=== PATIENT | female | born 1960 | race Caucasian/White ===

== ENCOUNTER 2020-03-17 08:02 | Emergency (ER) | payer BC, SELFPAY ==
[2020-03-17 08:23] VITALS: BP 158/88; PULSE 71; RESP 16; TEMP 36.3; O2SAT 99
--- NOTE | 2020-03-17 08:23 | ED.URI ---
HPI - URI/Sore Throat General Chief Complaint: Upper Respiratory Infection Stated Complaint: Sore throat Time Seen by Provider: 03/17/20 08:23 Source: patient Mode of arrival: ambulatory Limitations: no limitations History of Present Illness HPI Narrative: Arlet Woodson is a 60 yo female with a PMH of hypothyroid who comes to express care with a sore throat x 2-3 days, no fever, tested for covid 2 weeks ago and was negative. Related Data Home Medications Medication Instructions Recorded Confirmed levothyroxine 112 mcg DAILY 03/17/20 03/17/20 Allergies Allergy/AdvReac Type Severity Reaction Status Date / Time Penicillins Allergy Unknown Rash Verified 03/22/19 09:21 OIL BASED PRODUCTS Allergy Severe INHALED- Uncoded 03/18/19 12:20 SOB/COUGHING Review of Systems Review of Systems: Narrative: CONSTITUTIONAL: Denies fever, chills, sweats. EYES: Denies visual changes, redness, discharge. ENT: Denies rhinorrhea, some congestion, has sore throat, mild right otalgia. CARDIOVASCULAR: Denies chest pain, palpitations, edema. RESPIRATORY: Denies dyspnea, wheezing, cough at night GASTROINTESTINAL: Denies abdominal pain, nausea, vomiting, diarrhea. GENITOURINARY: Denies dysuria, hematuria, abnormal discharge SKIN: Denies rash or itching. NEUROLOGIC: Denies numbness, or focal weakness. PSYCHIATRIC: Denies anxiety or depression. PMFSH Past Medical History Medical History Hypothyroidism Family History Family History Other Hypertension Kidney disease Social History Social History (Updated 03/17/20 @ 08:33 by Emma Lamb CNP) Smoking status: Never smoker Alcohol intake: current Gender identity (if verbalized by the patient): Female Comments At time of signature, I agree with nursing past medical, surgical, social and family history. There is no relevant family history pertinent to the presenting complaint. Patient's blood pressure elevated today and referred to primary care Exam Narrative: Exam Narrative: GENERAL: This is a well-nourished, well-developed patient, in mild distress. HEAD: normocephalic, atraumatic. EYES: PERRL. Sclera clear/white. Vision is grossly intact. EARS: External ears normal, auditory canals clear and without drainage, TMs normal without perforation. Hearing grossly intact. NOSE: External nose normal without nasal discharge, nares with redness, no rhinorrhea. THROAT: Mucous membranes moist, posterior pharynx erythema NECK: Neck supple, non-tender CARDIOVASCULAR: Regular rate and rhythm without murmurs, gallops, or rubs. RESPIRATORY: Clear to auscultation. Breath sounds equal bilaterally. No wheezes, rales, or rhonchi. GASTROINTESTINAL: Abdomen soft, non-tender, SKIN: warm, intact with no suspicious lesions or rash, good texture and turgor. NEURO: awake, alert, and oriented to person, place and time. There were no obvious focal neurologic abnormalities. Steady gait EXTREMITIES: Normal range of motion. BACK: Nontender without deformity Course Course Emergency Course: Strep test is negative, sent for culture Started on cepacol lozenges, Claritin, short course of steroids Vital Signs Vital signs: Vital Signs Temperature 97.4 F L 03/17/20 08:23 Pulse Rate 71 03/17/20 08:23 Respiratory Rate 16 03/17/20 08:23 Blood Pressure 158/88 H 03/17/20 08:23 Pulse Oximetry 99 03/17/20 08:23 Temperature 97.4 F L 03/17/20 08:23 Pulse Rate 71 03/17/20 08:23 Respiratory Rate 16 03/17/20 08:23 Blood Pressure 158/88 H 03/17/20 08:23 Pulse Oximetry 99 03/17/20 08:23 MDM - URI/Sore Throat Differential Diagnosis Differential diagnosis: Likely upper respiratory infection, bronchitis, pharyngitis and other Lab Data Labs: Strep Screen Presumptive Negative *(Reference Range: Negative)* Discharge Plan Discharge
== END 2020-03-17 08:41 | disposition home or self-care (01) ==
PROVIDERS: Emergency Provider Nurse Practitioner
DX: J02.9 Acute pharyngitis, unspecified (principal); E03.9 Hypothyroidism, unspecified
CPT/HCPCS: 87081; 87880; 99213; G0463

== ENCOUNTER 2022-10-15 11:48 | Outpatient (CLI) | payer BC, SELFPAY ==
[2022-10-15 19:06] LABS: Hemoglobin A1C 6.1 % (<5.7)
[2022-10-15 19:12] LABS: Basophils Absolute Auto 0.1 K/mm3 (0.0-0.1); Basophils Percent Auto 1.1 % (0.2-1.2); Eosinophils Absolute Auto 0.2 K/mm3 (0-0.3); Eosinophils Percent Auto 2.3 % (0-4.4); Hematocrit 43.1 % (37.0-47.0); Hemoglobin 14.1 g/dL (12.0-15.0); Immature Granulocyte Absolute 0.02 K/mm3 (0.00-0.031); Immature Granulocyte Percent A 0.3 % (0-0.5); Lymphocytes Absolute Auto 2.12 K/mm3 (0.9-3.2); Lymphocytes Percent Auto 32.5 % (18.3-44.2); Mean Corpuscular HGB Conc 32.7 g/dl (32-36); Mean Corpuscular Hemoglobin 30.9 pg (26-34); Mean Corpuscular Volume 94.3 fl (80-100); Monocytes Absolute Auto 0.7 K/mm3 (0.1-0.6); Monocytes Percent Auto 10.3 % (2.6-8.5); Neutrophils Absolute Auto 3.5 K/mm3 (1.3-6.7); Neutrophils Percent Auto 53.5 % (45.5-73.1); Platelet Count Result 205 k/mm3 (150-375); Red Blood Count 4.57 M/mm3 (4.2-5.4); Red Cell Distribution Width 12.3 % (11.5-14.5); White Blood Count 6.5 K/mm3 (4.5-10.0)
[2022-10-15 19:15] LABS: Alanine Aminotransferase 43 U/L (6-35); Albumin Level 4.3 g/dL (3.5-5.1); Alkaline Phosphatase 86 U/L (38-126); Anion Gap 7 mmol/L (8-16); Aspartate Amino Transferase 34 U/L (14-36); Bilirubin,Total 0.8 mg/dL (0.2-1.3); Blood Urea Nitrogen 14 mg/dL (7-17); Calcium 8.9 mg/dL (8.4-10.2); Carbon Dioxide 29 mmol/L (22-30); Chloride 103 mmol/L (98-107); Cholesterol 172 mg/dL (0-200); Estimated Glomerular Filt Rate > 60; Glucose 107 mg/dL (65-110); HDL Direct 46 mg/dL; Potassium 4.3 mmol/L (3.4-5.0); Sodium 139 mmol/L (137-145); Triglycerides 182 mg/dL (<150)
[2022-10-15 19:32] LABS: LDL Cholesterol Direct 92 mg/dL
[2022-10-15 19:50] LABS: Vitamin D 25 Hydroxy 37.3 ng/mL
== END 2022-10-15 11:49 | disposition home or self-care (01) ==
LOC: ANHGOSHLAB 11:49
PROVIDERS: PCP Family Medicine; Visit Provider Nurse Practitioner
DX: E78.5 Hyperlipidemia, unspecified (principal); E03.9 Hypothyroidism, unspecified; E55.9 Vitamin D deficiency, unspecified; R73.03 Prediabetes
CPT/HCPCS: 36415; 80053; 80061; 82306; 83036; 84443; 85025

== ENCOUNTER 2023-04-16 08:33 | Outpatient (CLI) | payer BC, SELFPAY ==
[2023-04-16 09:28] LABS: Kit Draw Collected
== END 2023-04-16 08:34 | disposition home or self-care (01) ==
LOC: ANHGOSHLAB 08:34
PROVIDERS: PCP Family Medicine; Visit Provider Nurse Practitioner Family
DX: E03.9 Hypothyroidism, unspecified (principal); E78.5 Hyperlipidemia, unspecified; H04.123 Dry eye syndrome of bilateral lacrimal glands; I10 Essential (primary) hypertension; M25.50 Pain in unspecified joint; Z13.1 Encounter for screening for diabetes mellitus; Z13.220 Encounter for screening for lipoid disorders; Z13.89 Encounter for screening for other disorder
CPT/HCPCS: 36415

== ENCOUNTER 2023-11-19 15:11 | Outpatient (CLI) | payer BC, SELFPAY ==
--- NOTE | ~2023-11-19 | XR_ITS ---
EXAMINATION: XR knee RT min 4V DATE: 11/19/2023 15:25 INDICATION: Injury of right lower leg, initial encounter. TECHNIQUE: 4 views of right knee including weightbearing views were obtained. COMPARISON: None. FINDINGS: Alignment is normal. No fracture. There is mild tricompartmental osteoarthritis. There is a small knee joint effusion. IMPRESSION: 1. Mild right knee osteoarthritis. 2. Small right knee joint effusion. Reviewed, dictated and finalized at location E.
== END 2023-11-19 15:12 | disposition home or self-care (01) ==
LOC: ANHIMG 15:13
PROVIDERS: PCP Family Medicine; Visit Provider Nurse Practitioner Family
DX: M25.361 Other instability, right knee (principal); M17.11 Unilateral primary osteoarthritis, right knee; M25.461 Effusion, right knee
CPT/HCPCS: 73564

== ENCOUNTER 2024-10-25 12:13 | Outpatient (CLI) | payer BC, SELFPAY ==
--- NOTE | ~2024-10-25 | MM_ITS ---
EXAMINATION: MM screening [facility] BI w gary HISTORY: Screening TECHNIQUE: Craniocaudal and mediolateral oblique 3-D tomosynthesis images were obtained and synthetic 2-D images were generated. CAD analysis was submitted and interpreted. COMPARISON: 04/29/2017 and dating back to 04/22/2011 BREAST PARENCHYMAL COMPOSITION: There are scattered areas of fibroglandular density. FINDINGS: Punctate and bulky calcifications are detected bilaterally, stable and benign in appearance . Punctate calcifications detected bilaterally, stable and benign in appearance, dermal in origin. Stable parenchymal pattern without suspicious microcalcifications, architectural distortion, discrete masses or significant asymmetry. IMPRESSION: 1. No mammographic evidence of malignancy. 2. Recommend routine screening mammography in one year. BI-RADS Category 2: Benign finding(s). Reviewed, dictated and finalized at location A.
--- OUTSIDE RECORDS SUMMARY | 2024-10-25 13:44 | XMS_ITS | Referral Summary ---
Author Organization [address] [address] Care Team Providers Care Transportation Museum Helper Name Role Phone Gino Goodson MD Primary Care Provider Encounters Date Type Department Care Team Description 08/22/2024 Results Follow-Up [facility] Convenient Care at [address] [phone] Tamara Steel NP 08/21/2024 2:54 PM DIE SINKER - 08/21/2024 11:59 PM DIE SINKER Hospital Encounter [address] [address] Pharyngitis, unspecified etiology Discharge Disposition: Discharge to home or self care 08/21/2024 11:15 AM DIE SINKER Office Visit [facility] Care at [address] [address] Tamara Steel NP Pharyngitis, unspecified etiology (Primary Dx) from Last 3 Months Allergies Active Allergy Reactions Criticality Noted Date Comments Penicillins Swelling Medium 04/22/2014 Medications atorvastatin (LIPITOR) 20 mg tablet TAKE 1 TABLET BY MOUTH EVERY DAY NEEDS APPOINTMENT IN AUGUST Active cyclobenzaprine (FLEXERIL) 10 mg tablet Take 0.5 tablets (5 mg total) by mouth 3 (three) times a day as needed 4 Active levothyroxine (SYNTHROID) 112 mcg tablet TAKE ONE TABLET (112MCG) BY MOUTH ONCE DAILY 4 Active Active Problems No known active problems Social History Tobacco Use Types Packs/Day Years Used Date Smoking Tobacco: Never Assessed Comments Unknown Sex and Gender Information Value Date Recorded Sex Assigned at Not on file Legal Sex Female 2:29 AM DIE SINKER Gender Identity Not on file Sexual Orientation Not on file Last Filed Vital Signs Vital Sign Reading Time Taken Comments Blood Pressure 161/90 08/21/2024 11:10 AM DIE SINKER Pulse 70 08/21/2024 11:10 AM DIE SINKER Temperature 37 C (98.6 F) 08/21/2024 11:10 AM DIE SINKER Respiratory Rate 20 08/21/2024 11:10 AM DIE SINKER Oxygen Saturation 98% 08/21/2024 11:10 AM DIE SINKER Inhaled Oxygen Concentration - - Weight 112.5 kg (248 lb) 08/21/2024 11:10 AM DIE SINKER Height - - Body Mass Index - - Plan of Treatment Not on file Procedures Procedure Name Priority Date/Time Associated Diagnosis Comments THROAT CULTURE Routine 08/21/2024 3:37 PM DIE SINKER Pharyngitis, unspecified etiology POC INFLUENZA A/B, COVID-19 ANTIGEN Routine 08/21/2024 11:36 AM DIE SINKER Pharyngitis, unspecified etiology POCT RAPID STREP Routine 08/21/2024 11:2 9 AM DIE SINKER Pharyngitis, unspecified etiology from Last 3 Months Results * Throat culture Throat (08/21/2024 3:37 PM DIE SINKER) Report Final Report: No growth of pathogens. Comment:Testing performed by : [facility], [address] [place]., [address] Throat 08/21/2024 3:37 PM DIE SINKER 08/21/2024 6:02 PM DIE SINKER Narrative TY ROBERTS - 08/22/2024 3:55 PM DIE SINKER Testing performed by [facility] Microbiology Laboratory ([phone]). us Tamara Steel NP LAB MICROBIOLOGY - GENERAL ORD ERABLES Final Result TY [address] Department [place] [address] * POC Influenza A/B, COVID-19 antigen (08/21/2024 11:36 AM DIE SINKER) Influenza A Ag, POC Negative Negative [facility] Influenza B Ag, POC Negative Negative [facility] COVID-19 Ag POC Presumptive Negative Presumptive Negative, Invalid [facility] Nasal 08/21/2024 11:3 6 AM DIE SINKER Tamara Steel PAPER FINISHER POINT OF CARE TEST ORDERABLES Final Result Performing Organization Address City/State/[facility] Co de Phone Number [facility] EDW [facility] [place] [address], [facility] * POCT rapid strep A (08/21/2024 11:29 AM DIE SINKER) Rapid Strep A, POC Negative Negative Swab 08/21/2024 11:2 9 AM DIE SINKER Tamara Steel PAPER FINISHER POINT OF CARE TEST ORDERABLES Final Result from Last 3 Months Insurance [employer] Care Teams Transportation Museum Helper Relationship Specialty Start Date End Date Gino Goodson MD [address] [place] [address] [place] [phone] PCP - General Family Practice 08/21/24
--- OUTSIDE RECORDS SUMMARY | 2024-10-25 13:44 | XMS_ITS | Clinical Summary ---
Author Organization [facility] [employer] Address [address] [place] [address] Care Team Providers Care Manager Testing Name Role Phone Provider, No Pcp Primary Care Provider Unavailab le Source Comments [facility] [employer],non-owned Affiliates and Associated Physician Practices is amultiple site organization consisting of ambulatory clinics and hospital sitesin [place], [place], [place] and [place]. This disclosure is being madepursuant to the Care Everywhere program and may not contain all information available regarding this patient. Last updated 18.[employer] Allergies Active Allergy Reactions Criticality Noted Date Comments Penicillins Swelling Low 04/22/2014 Medications * Be aware that medications may not be up to date on this document. Alwaysverify current medications with the patient. atorvastatin (Lipitor) 20 MG tablet Take 1 (one) tablet by mouth once daily 4 Active levothyroxine (Synthroid) 112 MCG tablet TAKE ONE TABLET (112MCG) BY MOUTH ONCE DAILY 4 Active meloxicam (Mobic) 15 MG tabletIndications: Lumbar radiculopathy Take 1 (one) tablet by mouth once daily 30 tablet 4 Active methylPREDNISolone (Medrol Dosepak) 4 MG tablet Take by mouth as directed Take as directed by mouth per package instructions. 21 tablet 4 Active methylPREDNISolone (Medrol Dosepak) 4 MG tablet Take by mouth as directed Take as directed by mouth per package instructions. 21 tablet 4 Active cyclobenzaprine (Flexeril) 10 MG tablet Take 0.5 (one-half) tablet by mouth 3 times daily as needed for Muscle Spasms 15 tablet 4 Active Active Problems Problem Noted Date Diagnosed Date Closed fracture of right acetabulum 04/22/2014 Social History Tobacco Use Types Packs/Day Years Used Date Smoking Tobacco: Never Smokeless Tobacco: Never Alcohol Use Standard Drinks/Week Comments Yes 0 (1 standard drink = 0.6 oz pur e alcohol) PHQ-2 Answer Date Recorded Patient Health Questionnaire-2 Score 0 04/26/2024 Comments Unknown Sex and Gender Information Value Date Recorded Sex Assigned at Not on file Legal Sex Female 6:09 PM MOLD MAKER PLASTIC MOLDS Gender Identity Not on file Sexual Orientation Not on file Last Filed Vital Signs Vital Sign Reading Time Taken Comments Blood Pressure 163/74 06/16/2024 10:07 AM MOLD MAKER PLASTIC MOLDS Pulse 81 06/16/2024 10:29 AM MOLD MAKER PLASTIC MOLDS Temperature 36.8 C (98.3 F) 06/16/2024 10:07 AM MOLD MAKER PLASTIC MOLDS Respiratory Rate 20 06/16/2024 10:07 AM MOLD MAKER PLASTIC MOLDS Oxygen Saturation 99% 06/16/2024 10:29 AM MOLD MAKER PLASTIC MOLDS Inhaled Oxygen Concentration - - Weight 104.3 kg (230 lb) 06/16/2024 10:07 AM MOLD MAKER PLASTIC MOLDS Height 182.9 cm (6') 06/16/2024 10:07 AM MOLD MAKER PLASTIC MOLDS Body Mass Index 31.19 06/16/2024 10:07 AM MOLD MAKER PLASTIC MOLDS Plan of Treatment Upcoming Encounters Date Type Department Care Team (Late st Contact Info) Description 02/16/2025 9:30 AM CDT Office Visit [facility] [address] [place] [id number] Jimmy Brush MD [address] [facility] [address] [place] [address] Health Maintenance Due Date Last Done Comments COLOGUARD (AGES 45-75) - COL ON CA SCREENING 1962 COLON MONITORING 1962 COLONOSCOPY - COLON CA SCREENING 1962 CT COLONOGRAPHY - COLON CA SCREENING 1962 Colorectal Cancer Screening 1962 FIT - COLON CA SCREENING 1962 FLEX SIG - COLON CA SCREENING 1962 MAMMOGRAM 1962 PAP SMEAR 1962 HIV SCREENING 1977 HEPATITIS C SCREENING 02/19/1980 DTAP/TDAP/TD VACCINES (1 - Tdap) 1981 PNEUMOCOCCAL VACCINE 50+ (1 of 1 - PCV) 02/24/2012 ZOSTER VACCINE (1 of 2) 02/24/2012 SCREENING FOR DIABETES 02/17/2024 4, 04/24/2014, 04/22/2014 COVID-19 VACCINE (1 - 2023-2 5 season) 2024 DEPRESSION SCREENING 07/07/2024 02/17/2024 INFLUENZA VACCINE (Season Ended) 2025 Respiratory Syncytial Virus (RSV) Vaccine Pt: or over 60 yrs (1 - 1-dose 75+ series) 2037 HEPATITIS B VACCINE Aged Out No longe r eligible based on patient's age to complete this topic HIB VACCINE Aged Out No longer eligi ble based on patient's age to complete this topic HPV VACCINE Aged Out No longer eligi ble based on patient's age to complete this topic MENINGOCOCCAL (Group B) VACCINE SHARED DECISION-MAKING Aged Out No longer eligible based on patient's age to complete this topic MENINGOCOCCAL GROUPS A/C/Y/W VACCINE Aged Out No longer eligible b ased on patient's age to complete this topic Procedures Procedure Name Priority Date/Time Associated Diagnosis Comments BASIC METABOLIC PANEL (CALCIUM TOTAL) Routine 04/27/2014 12:30 AM CDT from Last 3 Months or Most Recently Relevant to Health Maintenance Results * (ABNORMAL) BASIC METABOLIC PANEL (CALCIUM TOTAL) (04/27/2014 12:30 AM CDT) BUN 13 7 - 26 mg/dL [facility] Creatinine 0.8 0.6 - 1.2 mg/dL [facility] Sodium 138 136 - 145 mmol/L [facility] Potassium 4.0 3.5 - 4.5 mmol/L [facility] Chloride 104 98 - 107 mmol/L [facility] CO2 24 22 - 29 mmol/L [facility] Glucose 127(H) 70 - 115 mg/dL [facility] Calcium 8.4 8.4 - 10.2 mg/dL [facility] Anion Gap 14 8 - 18 [facility] BUN/Creatinine Ratio 16 7 - 23 [facility] Osmolality Calculated 273 270 - 300 mOsm/kg [facility] eGFR >60 >60 mL/min/1.7 3 m2 [facility] Blood specimen (specimen) BLOOD SPECIMEN / Unknown 04/27/2014 12:30 AM CDT 04/27/2014 12:34 AM CDT Narrative [facility] - 04/27/2014 1:12 AM CDT Draw with Vanc trough level Joan A Dontrell MEDICAL TECHNICIAN ASSISTANT-TRAFFIC SIGNAL TECHNICIAN LAB - CHEMISTRY ORDERA BLES Final Result [facility] [address] [phone] from Last 3 Months or Most Recently Relevant to Health Maintenance Insurance [facility] Care Teams Manager Testing Relationship Specialty Start Date End Date Provider, No Pcp PCP - General 02/17/24
--- OUTSIDE RECORDS SUMMARY | 2024-10-25 13:44 | XMS_ITS | Clinical Summary ---
Author Organization [facility] [address] Address [address] [place] [id number] Care Team Providers Care Byproducts Supervisor Name Role Phone Gino Goodson MD Primary Care Provider Allergies Active Allergy Reactions Criticality Noted Date [...] Active Active Problems No known active problems Encounters Date Type Department Care Team Description 08/22/2024 Results Follow-Up [facility] Medical Group Convenient Care at [address] [phone] Tamara Steel NP 08/21/2024 2:54 PM WARDROBE MISTRESS - 08/21/2024 11:59 PM WARDROBE MISTRESS Hospital Encounter [address] [address] Pharyngitis, unspecified etiology Discharge Disposition: Discharge to home or self care 08/21/2024 11:15 AM WARDROBE MISTRESS Office Visit [facility] Medical Group Convenient Care at [address] [phone] Tamara Steel NP Pharyngitis, unspecified etiology (Primary Dx) from Last 3 Months Social History Tobacco Use Types Packs/Day Years Used Date Smoking Tobacco: Never Assessed Comments Unknown Sex and Gender Information Value Date Recorded Sex Assigned at Not on file Legal Sex Female 2:29 AM WARDROBE MISTRESS Gender Identity Not on file Sexual Orientation Not on file Obstetrics History Last Filed Vital Signs Vital Sign Reading Time Taken Comments Blood Pressure 161/90 08/21/2024 11:10 AM WARDROBE MISTRESS Pulse 70 08/21/2024 11:10 AM WARDROBE MISTRESS Temperature 37 C (98.6 F) 08/21/2024 11:10 AM WARDROBE MISTRESS Respiratory Rate 20 08/21/2024 11:10 AM WARDROBE MISTRESS Oxygen Saturation 98% 08/21/2024 11:10 AM WARDROBE MISTRESS Inhaled Oxygen Concentration - - Weight 112.5 kg (248 lb) 08/21/2024 11:10 AM WARDROBE MISTRESS Height - - Body Mass Index - - Plan of Treatment Health Maintenance Due Date Last Done Comments Breast Cancer Screening-Mammogram 1962 Cervical Cancer Screening 1962 Colon Cancer Screening-Colonoscopy 1962 Depression Screening 1962 Hepatitis C Screening 1962 DTaP/Tdap/Td Vaccine (1 - Tdap) 1973 Hepatitis B Screening 02/24/1980 Regular Well Visit/Exam 18-64 02/24/1980 Zoster Vaccine (1 of 2) 02/24/2012 Covid-19 Vaccine ( - 2023-2 5 season) 2024 07/21/2021, 01/20/2021, 11/06/2020 Influenza Vaccine (Season Ended) 2025 Pneumococcal vaccine <65 Aged Out No longer eligible based on patient's age to complete this topic Procedures Procedure Name Priority Date/Time Associated Diagnosis Comments THROAT CULTURE Routine 08/21/2024 3:37 PM WARDROBE MISTRESS Pharyngitis, unspecified etiology POC INFLUENZA A/B, COVID-19 ANTIGEN Routine 08/21/2024 11:36 AM WARDROBE MISTRESS Pharyngitis, unspecified etiology POCT RAPID STREP Routine 08/21/2024 11:2 9 AM WARDROBE MISTRESS Pharyngitis, unspecified etiology from Last 3 Months Results * Throat culture Throat (08/21/2024 3:37 PM WARDROBE MISTRESS) Report Final Report: No growth of pathogens. Comment:Testing performed by : [facility], [address] [place]., [address] Throat 08/21/2024 3:37 PM WARDROBE MISTRESS 08/21/2024 6:02 PM WARDROBE MISTRESS Narrative TY ROBERTS - 08/22/2024 3:55 PM WARDROBE MISTRESS Testing performed by [facility] Microbiology Laboratory ([phone]). Tamara Steel NP LAB MICROBIOLOGY - GENERAL ORD ERABLES Final Result [facility] [address] Department [place] [address] * POC Influenza A/B, COVID-19 antigen (08/21/2024 11:36 AM WARDROBE MISTRESS) Influenza A Ag, POC Negative Negative [facility] Influenza B Ag, POC Negative Negative [facility] COVID-19 Ag POC Presumptive Negative Presumptive Negative, Invalid [facility] [place] Nasal 08/21/2024 11:3 6 AM WARDROBE MISTRESS Tamara Steel BRAZER INDUCTION POINT OF CARE TEST ORDERABLES Final Result Performing Organization Address City/[facility] Co de Phone Number [facility] ED[facility] [address] [place] [address] * POCT rapid strep A (08/21/2024 11:29 AM WARDROBE MISTRESS) Rapid Strep A, POC Negative Negative Swab 08/21/2024 11:2 9 AM WARDROBE MISTRESS Tamara Steel BRAZER INDUCTION POINT OF CARE TEST ORDERABLES Final Result from Last 3 Months Insurance [employer] Care Teams Byproducts Supervisor Relationship Specialty Start Date End Date Gino Goodson MD [address] [facility] [address] [address] PCP - General Family Practice 08/21/24
--- OUTSIDE RECORDS SUMMARY | 2024-10-25 13:45 | XMS_ITS | Clinical Summary ---
Author Organization [facility] Address [address] [place] [address] Care Team Providers Care Linux Developer Name Role Phone Unavailable Primary Care Provider Unavailabl e Social History Tobacco Use Types Packs/Day Years Used Date Smoking Tobacco: Never Assessed Comments Unknown Sex and Gender Information Value Date Recorded Sex Assigned at Not on file Legal Sex Female 4:04 PM CDT Gender Identity Not on file Sexual Orientation Not on file Plan of Treatment Health Maintenance Due Date Last Done Comments Cervical Cancer Screening Pa p Smear (Age 30 to 64) Every 3 Years 1962 Colorectal Cancer Screening Colonoscopy (10 Years) 1962 Annual Physical 1965 Hepatitis C 02/24/1980 DTaP, Tdap and Td Vaccines ( 1 - Tdap) 1981 Cervical Cancer Screening Pa p with HPV Testing (Age 30 to 64) Every 5 Years 02/24/1992 Cervical Cancer Screening with HPV 02/24/1992 Mammogram Screening 2002 Pneumococcal Vaccine: 50+ Ye ars (1 of 1 - PCV) 02/24/2012 Zoster Vaccines (1 of 2) 02/24/2012 COVID-19 Vaccine (2023-2 5 season) 2024 RSV Immunization or 60+ Years (1 - 1-dose 75+ series) 2037 Meningococcal B Vaccine Aged Out No l onger eligible based on patient's age to complete this topic Meningococcal Vaccine Aged Out No alex flash eligible based on patient's age to complete this topic RSV Immunizations Under 20 Months Aged Out No longer eligible based on patient's age to complete this topic
== END 2024-10-25 12:14 | disposition home or self-care (01) ==
LOC: CHSIMG 12:15
PROVIDERS: PCP Family Medicine; Visit Provider Obstetrics & Gynecology
DX: Z12.31 Encounter for screening mammogram for malignant neoplasm of breast (principal); Z78.0 Asymptomatic menopausal state
CPT/HCPCS: 77063; 77067; 77080

== ENCOUNTER 2025-04-05 09:03 | Outpatient (CLI) | payer BC, SELFPAY ==
--- OUTSIDE RECORDS SUMMARY | 2025-04-05 09:32 | XMS_ITS | Clinical Summary ---
Author Organization [facility] Address [address] [place] [address] Care Team Providers Care Silk Spooler Name Role Phone Provider, No Pcp Primary Care Provider Unavailab le Source Comments [facility],non-owned Affiliates and Associated Physician Practices is amultiple site organization consisting of ambulatory clinics and hospital sitesin [place], [place], [place] and [place]. This disclosure is being madepursuant to the Care Everywhere program and may not contain all information available regarding this patient. Last updated [email or web address] [facility] Allergies Active Allergy Reactions Criticality Noted Date [...] as needed for Muscle Spasms 15 tablet Active Active Problems Problem Noted Date Diagnosed Date Closed fracture of right acetabulum 04/22/2014 Encounters Date Type Department Care Team Description 01/25/2025 Orders Only [facility] - Orthopedic Surgery [address] [place] [id number] Jimmy Brush MD Post-traumatic osteoarthritis of right hip ; Pain of right hip from Last 3 Months Social History Tobacco [...] on file Legal Sex Female 6:09 PM CAN RECONDITIONER Gender Identity Not on file Sexual Orientation Not on file Last Filed Vital Signs Vital Sign Reading Time Taken Comments Blood Pressure 163/74 06/16/2024 10:07 AM CAN RECONDITIONER Pulse 81 06/16/2024 10:29 AM CAN RECONDITIONER Temperature 36.8 C (98.3 F) 06/16/2024 10:07 AM CAN RECONDITIONER Respiratory Rate 20 06/16/2024 10:07 AM CAN RECONDITIONER Oxygen Saturation 99% 06/16/2024 10:29 AM CAN RECONDITIONER Inhaled Oxygen Concentration - - Weight 104.3 kg (230 lb) 06/16/2024 10:07 AM CAN RECONDITIONER Height 182.9 cm (6') 06/16/2024 10:07 AM CAN RECONDITIONER Body Mass Index 31.19 06/16/2024 10:07 AM CAN RECONDITIONER Plan of Treatment Health Maintenance Due Date Last Done Comments COLOGUARD (AGES 45-75) - COL ON CA SCREENING 1962 COLON MONITORING 1962 COLONOSCOPY - COLON CA SCREENING 1962 CT COLONOGRAPHY - COLON CA SCREENING 1962 Colorectal Cancer Screening 1962 FIT - COLON CA SCREENING 1962 FLEX SIG - COLON CA SCREENING 1962 MAMMOGRAM 1962 HIV SCREENING 1977 HEPATITIS C SCREENING 02/19/1980 DTAP/TDAP/TD VACCINES (1 - Tdap) 1981 PNEUMOCOCCAL VACCINE 50+ (1 of 1 - PCV) 02/24/2012 ZOSTER VACCINE (1 of 2) 02/24/2012 SCREENING FOR DIABETES 02/17/2024 4, 04/24/2014, 04/22/2014 DEPRESSION SCREENING 07/07/2024 02/17/2024 COVID-19 VACCINE (1 - 2023-2 5 season) 2025 INFLUENZA VACCINE (#1) 2025 Respiratory Syncytial Virus (RSV) Vaccine Pt: [...] CDT) BUN 13 7 - 26 mg/dL [facility] Creatinine 0.8 0.6 - 1.2 mg/dL [facility] Sodium 138 136 - 145 mmol/L [facility] Potassium 4.0 3.5 - 4.5 mmol/L [facility] Chloride 104 98 - 107 mmol/L [facility] CO2 24 22 - 29 mmol/L [facility] Glucose 127(H) 70 - 115 mg/dL [facility] Calcium 8.4 8.4 - 10.2 mg/dL [facility] Anion Gap 14 8 - 18 [facility] BUN/Creatinine Ratio 16 7 - 23 [facility] Osmolality Calculated 273 270 - 300 mOsm/kg [facility] eGFR >60 >60 mL/min/1.7 3 m2 [facility] Blood specimen (specimen) BLOOD SPECIMEN / Unknown 04/27/2014 12:30 AM CDT 04/27/2014 12:34 AM CDT Narrative [facility] - 04/27/2014 1:12 AM CDT Draw with Vanc trough level us Joan Jon MEAT PRESS OPERATOR-INCIDENT RESPONSE SPECIALIST LAB - CHEMISTRY ORDERA BLES Final Result [facility] [address] [phone] from Last 3 Months or Most Recently Relevant to Health Maintenance Insurance ANTHEM Care Teams Silk Spooler Relationship Specialty Start Date End Date Provider, No Pcp PCP - General 02/17/24
--- OUTSIDE RECORDS SUMMARY | 2025-04-05 09:32 | XMS_ITS | Clinical Summary ---
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 Gender Identity Not on file Sexual Orientation Not on file Obstetrics History Last Filed Vital Signs Vital Sign Reading Time Taken Comments Blood Pressure 161/90 08/21/2024 11:10 AM LABOR RELATIONS MANAGER Pulse 70 08/21/2024 11:10 AM LABOR RELATIONS MANAGER Temperature 37 C (98.6 F) 08/21/2024 11:10 AM LABOR RELATIONS MANAGER Respiratory Rate 20 08/21/2024 11:10 AM LABOR RELATIONS MANAGER Oxygen Saturation 98% 08/21/2024 11:10 AM LABOR RELATIONS MANAGER Inhaled Oxygen Concentration - - Weight 112.5 kg (248 lb) 08/21/2024 11:10 AM LABOR RELATIONS MANAGER Height - - Body Mass Index - - Plan of Treatment Health Maintenance Due Date Last Done Comments Breast Cancer Screening-Mammogram 1962 Cervical Cancer Screening 1962 Colon Cancer Screening-Colonoscopy 1962 Depression Screening 1962 Hepatitis C Screening 1962 DTaP/Tdap/Td Vaccine (1 - Tdap) 1973 Hepatitis B Screening 02/24/1980 Regular Well Visit/Exam 18-64 02/24/1980 Zoster Vaccine (1 of 2) 02/24/2012 Covid-19 Vaccine (4 - 2024-2 6 season) 2025 07/21/2021, 01/20/2021, 11/06/2020 Influenza Vaccine (#1) 2025 Pneumococcal vaccine <65 Aged Out No longer eligible based on patient's age to complete this topic Insurance Insurance Business Applications ACCESS CHOICE Member Subscriber Plan / Payer (Ef fective 2022-Present) Name:Arlet Woodson Member ID:[id number] Relation to Subscriber:Spouse Name:Luke Woodson Subscriber ID:[id number] Date of :1965 Address: [address] [place] [address] Payer ID:[id number] (NAIC) Type: WILLIE Address: [facility] [id number] [place] [id number] Care Teams Sow Farm Barn Technician Relationship Specialty Start Date End Date Gino Goodson MD [address] [place] [address] [place] [id number] PCP - General Family Practice 08/21/24
--- OUTSIDE RECORDS SUMMARY | 2025-04-05 09:32 | XMS_ITS | Clinical Summary ---
Author Organization [facility] Address [address] [place] [id number] Care Team Providers Care Ag Equipment Field Service Technician Name Role Phone Unavailable Primary Care Provider [...] Vaccines (1 of 2) 02/24/2012 COVID-19 Vaccine ( - 2023-2 5 season) 2025 RSV Immunization or 60+ Years (1 - [...]
== END 2025-04-05 09:04 | disposition home or self-care (01) ==
LOC: ANHGOSHLAB 09:04
PROVIDERS: PCP Nurse Practitioner Family; Visit Provider Nurse Practitioner Family
DX: E78.2 Mixed hyperlipidemia (principal); E03.9 Hypothyroidism, unspecified; E55.9 Vitamin D deficiency, unspecified; R73.03 Prediabetes
CPT/HCPCS: 36415

== ENCOUNTER 2025-04-05 09:21 | Outpatient (CLI) | payer BC, SELFPAY ==
--- NOTE | ~2025-04-05 | XR_ITS ---
EXAMINATION: XR foot LT 2V, 04/05/2025 9:27 CDT HISTORY: Pain in left foot x 4 days, no injury, no surgery COMPARISON: No comparisons available. Findings: No acute fracture or malalignment. No significant degenerative changes. Soft tissues unremarkable. Impression: No acute fracture or malalignment. Reviewed, dictated and finalized at location P. Impression: No acute fracture or malalignment.
== END 2025-04-05 09:22 | disposition home or self-care (01) ==
LOC: GOSHIMG 09:23
PROVIDERS: PCP Nurse Practitioner Family; Visit Provider Nurse Practitioner Family
DX: M79.672 Pain in left foot (principal)
CPT/HCPCS: 73620

== ENCOUNTER 2025-04-21 11:12 | Outpatient (CLI) | payer BC, SELFPAY ==
--- NOTE | ~2025-04-21 | XR_ITS ---
XR cervical spine min 6V Indication: Cervicalgia, dizziness x 2 days, hurt self in yoga Comparison: None Findings: No fracture or subluxation, no subluxation flexion and extension Moderate loss of disc height throughout most marked at C5-6 with mild to moderate narrowing of the foramina bilaterally throughout the cervical spine. Soft tissues unremarkable Impression: No acute abnormality. Reviewed, dictated and finalized at location P. Impression: No acute abnormality.
--- NOTE | ~2025-04-21 | XR_ITS ---
EXAMINATION: XR soft tissue neck, 04/21/2025 11:35 CDT HISTORY: Cervicalgia, dizziness x 2 days, hurt self in yoga COMPARISON: No comparisons available. Technique: 2 view. Findings: There is no distention of the pharynx or hypopharynx. No thickening of the retropharyngeal tissues of the visualized epiglottis. The osseous structures demonstrate moderate degenerative changes. IMPRESSION: No acute process Reviewed, dictated and finalized at location P. IMPRESSION: No acute process
== END 2025-04-21 11:13 | disposition home or self-care (01) ==
LOC: GOSHIMG 11:12
PROVIDERS: PCP Nurse Practitioner Family; Visit Provider Nurse Practitioner Family
DX: M54.2 Cervicalgia (principal); R42 Dizziness and giddiness
CPT/HCPCS: 70360; 72052